=== PATIENT | male | born 1935 | race African-American/Black ===

== ENCOUNTER 2016-04-09 15:14 | Emergency (ER) | payer OTHER ==
[~2016-04-09] VITALS: Ht 180.3 cm; Wt 79.7 kg
[~2016-04-09 15:14] MED LIST: NAPROSYN375 MG PO; NAPROSYN500 MG PO; OPTIFLEX-C400 MG PO; PERCOCET 5/31 TABLET PO; PREDNISONE10 MG PO
[2016-04-09 15:42] VITALS: BP 160/75
[2016-04-09 16:01] VITALS: BP 146/82
[2016-04-09 16:27] LABS: HEMATOCRIT 35.9 % (38.0-50.0); MCH 30.2 PG (29.0-34.0); MCHC 33.4 G/DL (30.0-36.0); MCV 90.2 FL (86-99); MEAN PLAT.VOLUME 10.5 uM^3 (9.0-12.4); PLATELET COUNT 306 K/uL (156-360); RBC DIS.WIDTH-CV 14.6 % (11.8-14.6); RBC DIS.WIDTH-SD 46.7 % (39-53); RED BLOOD COUNT 3.98 M/uL (4.00-5.50); WHITE BLOOD COUNT 9.4 K/uL (4.1-10.2)
[2016-04-09 16:31] VITALS: BP 148/81
[2016-04-09] MEDS ORDERED: ONE A DAY PREN1 EACH PO (16:31)
[2016-04-09 16:56] LABS: TROP-I INTERPRETATION NEGATIVE; TROPONIN-I < 0.01 ng/mL (0.0-0.30)
[2016-04-09 17:01] VITALS: BP 146/82
[2016-04-09 17:06] LABS: CHLORIDE 105 mEq/L (99-109); POTASSIUM 5.1 mEq/L (3.7-5.4); SODIUM 139 mEq/L (136-147)
[2016-04-09 17:07] LABS: GLUCOSE 111 mg/dL (70-99)
[2016-04-09 17:09] LABS: ANION GAP 6 MEQ/L (2-14)
[2016-04-09 17:11] LABS: GFR ESTIMATE (CALCULATED) > 59 mL/min/
[2016-04-09 17:12] LABS: UREA NITROGEN (BUN) 14 mg/dL (9-23)
[2016-04-09 17:31] VITALS: BP 139/77
[2016-04-09 17:43] VITALS: BP 139/77
== END 2016-04-09 17:43 | disposition home or self-care (01) ==
LOC: EME 15:14
PROVIDERS: Emergency Medicine
DX: E86.0 Dehydration (principal); R53.1 Weakness; D86.9 Sarcoidosis, unspecified
CPT/HCPCS: 80048; 84484; 85027; 93005; 99281; 99285; J7030

== ENCOUNTER 2017-07-13 14:20 | Emergency (ER) | payer OTHER ==
[~2017-07-13] VITALS: Ht 180.3 cm; Wt 77.1 kg
[~2017-07-13 14:20] MED LIST changes: +ONE A DAY PREN1 EACH PO
[2017-07-13 14:59] LABS: HEMATOCRIT 33.8 % (38.0-50.0); HEMOGLOBIN 11.1 G/DL (12.5-16.6); MCH 30.3 PG (29.0-34.0); MCHC 32.8 G/DL (30.0-36.0); MCV 92.3 FL (86-99); PLATELET COUNT 319 K/uL (156-360); RBC DIS.WIDTH-CV 14.1 % (11.8-14.6); RBC DIS.WIDTH-SD 46.8 % (39-53); RED BLOOD COUNT 3.66 M/uL (4.00-5.50); WHITE BLOOD COUNT 8.5 K/uL (4.1-10.2)
[2017-07-13 15:08] LABS: CHLORIDE 103 mEq/L (99-109); POTASSIUM 3.5 mEq/L (3.7-5.4); SODIUM 139 mEq/L (136-147)
[2017-07-13 15:09] LABS: GLUCOSE 148 mg/dL (70-99)
[2017-07-13 15:13] LABS: CREATININE 0.8 mg/dL (0.6-1.3); GFR ESTIMATE (CALCULATED) > 59 mL/min/ (58.99-99999)
[2017-07-13 15:14] LABS: UREA NITROGEN (BUN) 12 mg/dL (9-23)
[2017-07-13 15:29] LABS: ALBUMIN 3.8 g/dL (3.2-4.8)
[2017-07-13 15:32] LABS: TOTAL PROTEIN 6.8 g/dL (6.4-8.3)
[2017-07-13 15:34] LABS: TOTAL BILIRUBIN 1.1 mg/dL (0.0-1.0)
[2017-07-13 15:35] LABS: ALKALINE PHOSPHATASE 61 IU/L (3-129)
[2017-07-13 15:37] LABS: AST (GOT) 17 IU/L (2-34); TROP-I INTERPRETATION NEGATIVE; TROPONIN-I < 0.01 ng/mL (0.0-0.30)
[2017-07-13 15:38] LABS: ALT (GPT) 6 IU/L (3-49); DIRECT BILIRUBIN 0.4 mg/dL (0.0-0.3)
[2017-07-13 18:07] VITALS: BP 148/78
== END 2017-07-13 18:10 | disposition home or self-care (01) ==
LOC: EME 14:20 → EXP 14:20
DX: R42 Dizziness and giddiness (principal); R06.02 Shortness of breath; D86.9 Sarcoidosis, unspecified
CPT/HCPCS: 70450; 71046; 80048; 80076; 81003; 84484; 85027; 93005; 99281; 99285

== ENCOUNTER 2017-09-20 00:16 | Observation (INO) | payer OTHER ==
[~2017-09-20] VITALS: Ht 180.3 cm; Wt 77.7 kg
[2017-09-20 00:52] LABS: BASOPHIL (%) 0.1 % (0-1); EOSINOPHIL (%) 0.9 % (0-5); EOSINOPHIL COUNT 0.1 K/uL (0-0.3); HEMATOCRIT 36.1 % (38.0-50.0); HEMOGLOBIN 11.9 G/DL (12.5-16.6); IMMATURE GRANULOCYTE (%) 0.5 % (0.0-0.7); LYMPHOCYTE (%) 8.9 % (15-42); LYMPHOCYTE COUNT 1.4 K/uL (1.0-2.8); MCH 30.2 PG (29.0-34.0); MCV 91.6 FL (86-99); MONOCYTE (%) 8.6 % (3-12); MONOCYTE COUNT 1.4 K/uL (0-0.8); NEUTROPHIL COUNT 12.7 K/uL (1.8-6.4); PLATELET COUNT 330 K/uL (156-360); RBC DIS.WIDTH-CV 15.7 % (11.8-14.6); RBC DIS.WIDTH-SD 51.7 % (39-53); RED BLOOD COUNT 3.94 M/uL (4.00-5.50); WHITE BLOOD COUNT 15.7 K/uL (4.1-10.2)
[2017-09-20 00:59] LABS: CHLORIDE 103 mEq/L (99-109); POTASSIUM 4.1 mEq/L (3.7-5.4); SODIUM 139 mEq/L (136-147)
[2017-09-20 01:01] LABS: GLUCOSE 184 mg/dL (70-99); TOTAL PROTEIN 7.4 g/dL (6.4-8.3)
[2017-09-20 01:03] LABS: TOTAL BILIRUBIN 0.7 mg/dL (0.0-1.0)
[2017-09-20 01:05] LABS: ALKALINE PHOSPHATASE 74 IU/L (3-129); CREATININE 0.8 mg/dL (0.6-1.3); GFR ESTIMATE (CALCULATED) > 59 mL/min/ (58.99-99999)
[2017-09-20 01:06] LABS: UREA NITROGEN (BUN) 21 mg/dL (9-23)
[2017-09-20 01:07] LABS: AST (GOT) 18 IU/L (2-34)
[2017-09-20 01:08] LABS: ALT (GPT) 13 IU/L (3-49); LIPASE 50 U/L (1.0-51.0)
[2017-09-20 02:20] LABS: APPEARANCE CLEAR ((CLEAR)); BILIRUBIN NEGATIVE; BLOOD NEGATIVE; COLOR YELLOW ((YELLOW)); GLUCOSE (STRIP) 50; KETONES NEGATIVE; LEUKOCYTES NEGATIVE; NITRITE NEGATIVE; PROTEIN (STRIP) 100; UROBILINOGEN 0.2 MG/DL (0.2-1.0)
[2017-09-20 02:26] LABS: BACTERIA NONE SEEN /HPF; EPITHELIAL CELLS NONE SEEN /HPF; MUCUS TRACE /LPF; UCUL ADDED? NO; WHITE BLOOD CELLS 0-5 /HPF (0-5)
[2017-09-20 06:33] VITALS: BP 178/84
[2017-09-20 07:50] VITALS: BP 142/67
[2017-09-20 11:31] VITALS: BP 167/79
[2017-09-20] MEDS ORDERED: PREDNISONE10 MG PO (11:33)
[2017-09-20] MEDS ORDERED: MEN'S MULTI-VI1 EACH PO (11:37)
[2017-09-20] MEDS ORDERED: OSTEO BI-FLEX1 EAC3 PO (11:39)
[2017-09-20 15:10] VITALS: BP 159/75
[2017-09-20 20:00] VITALS: BP 104/67
[2017-09-20 23:59] VITALS: BP 158/74
[2017-09-21 05:09] VITALS: BP 165/81
[2017-09-21 05:15] LABS: HEMATOCRIT 35.8 % (38.0-50.0); HEMOGLOBIN 11.5 G/DL (12.5-16.6); MCH 29.6 PG (29.0-34.0); MCHC 32.1 G/DL (30.0-36.0); NRBC (%) 0.2 /100 WBC (0-0); PLATELET COUNT 349 K/uL (156-360); RBC DIS.WIDTH-CV 15.8 % (11.8-14.6); RBC DIS.WIDTH-SD 52.9 % (39-53); RED BLOOD COUNT 3.89 M/uL (4.00-5.50); WHITE BLOOD COUNT 17.1 K/uL (4.1-10.2)
[2017-09-21 05:32] LABS: CHLORIDE 102 MEQ/L (99-109); CREATININE 0.6 MG/DL (0.6-1.3); GFR ESTIMATE (CALCULATED) > 59 mL/min/ (58.99-99999); POTASSIUM 4.1 MEQ/L (3.7-5.4); SODIUM 137 MEQ/L (136-147); UREA NITROGEN (BUN) 12 mg/dL (9-23)
[2017-09-21 05:55] LABS: GLUCOSE 120 mg/dL (70-99)
[2017-09-21 08:00] VITALS: BP 156/71
[2017-09-21 11:47] VITALS: BP 176/81
[2017-09-21] MEDS ORDERED: MOTRIN600 MG PO (12:29)
[2017-09-21] MEDS ORDERED: FAMOTIDINE20 MG PO (12:29)
[2017-09-21] MEDS ORDERED: CYCLOBENZAPRINE10 MG PO (12:29)
[2017-09-21 15:26] VITALS: BP 171/67
== END 2017-09-21 15:32 | disposition home or self-care (01) ==
LOC: EME → EDBD 00:16 → EDOF 05:13 → 4SOUTH 05:13
PROVIDERS: Emergency Medicine; Hospitalist
DX: R10.11 Right upper quadrant pain (principal); D86.9 Sarcoidosis, unspecified; K80.20 Calculus of gallbladder without cholecystitis without obstruction; N20.0 Calculus of kidney; Z79.52 Long term (current) use of systemic steroids; K59.00 Constipation, unspecified; D64.9 Anemia, unspecified; J43.9 Emphysema, unspecified
CPT/HCPCS: 71046; 74177; 80048; 80053; 81003; 83605; 83690; 85025; 85027; 86140; 87040; 94640; 99281; 99285; G0378; J1644; J1956; J7030; J7040; J7512